=== PATIENT | male | born 1990 | race Caucasian/White ===

== ENCOUNTER 2018-11-28 15:21 | Outpatient (CLI) | payer OTHER ==
[2018-11-28 16:29] VITALS: BP 110/70
--- NOTE | 2018-11-28 16:29 | SLEEP CARE CONSULTATION ---
Information from patient questionnaire entered by Ewa Lock. I have reviewed and concur with the information entered by Ewa Lock. This document represents the service I personally performed and the decisions made by me, Stephy Schreiber MD, [facility]. History of Present Illness Reason for Visit: New patient Chief Complaint: reports: Unrefreshed sleep, Snoring, Observed pauses in breathing, Fatigue, Frequent awakenings at night Duration of Symptoms: 4 YEARS Usual bedtime: 10:00PM Time it takes to fall asleep: 2-5 minutes Snores at night: Yes Observed to quit breathing while asleep: Yes Sleeps alone due to snoring: No Number of times waking at night: 5 Reasons for waking at night: reports: Snoring, Gasping for air, Other (uncomfortable) Toss, Turn, or Twitch while sleeping: Yes Recalls having dreams: No Usually gets out of bed at: 6:00am Feels refreshed in the morning: No Morning headache: Yes (lasting all day) Sleepy or fatigued during the day: Yes Ever fallen asleep while driving: Yes Takes day naps: No Dreams during day naps: Yes Prior sleep studies: No Additional HPI information: I had the pleasure of seeing Mr. Hayward today regarding the possibility of him having a sleep disorder. As you know, he is a 28 year old gentleman who complains of loud snore, observed apneas, frequent awakenings, unrefreshed sleep, and excessive daytime sleepiness for the past 4 years. He reports waking up from his own snoring, choking, and having to gasp for air. He usually has a morning headache that lasts all day. During the day he complains of feeling sleepy and fatigued. His score on [place] Sleepiness Scale is 13 out of 24. He has fallen asleep while driving and has gone out of the more. He reports having impaired concentration during the day. - Parasomnia Symptoms Ever been unable to move upon waking from sleep: No Walks in sleep: Yes Talks in sleep: No Ever acted out dreams in sleep: No Ever felt weak in the knees when startled or emotional: No Bothered by creepy, crawly, restless sensations in legs: No Problems with memory or concentration: Yes Subjective Initial [place] Sleepiness Scale score: 13 Past Medical History Past Medical History: reports: Anxiety, Depression, GERD Social History The patient's occupation is a [employer]. Patient is and lives in [place]. Have you smoked in the past 12 months: No Alcohol use: Yes Alcohol amount and frequency: 1 glass/month Caffeine use: Yes Caffeine amount and frequency: 3 drinks/week Family History Family history of sleep disordered breathing: Yes Family Hx Sleep Apnea: Father: Snoring Allergies and Home Medications Home medication list reviewed: Yes Allergy and home medication list: most medications have run out Review of Systems Weight gain over past 5 years: 50 Cardiovascular: denies: high blood pressure, palpitations, chest pain, irregular heart rate or pulse, leg or foot swelling, have to sleep sitting up, other Respiratory: reports: shortness of breath Gastrointestinal: reports: heartburn, nausea, abdominal pain Neurological: reports: headaches Psychiatric: reports: anxiety, depression Ear/Nose/Throat: reports: nasal congestion, wisdom teeth removed Endocrine: reports: sluggishness, too hot or cold, increased appetite Musculoskeletal: reports: joint pain, neck pain, back pain Physical Exam Vital signs obtained and entered by: Dr. Schreiber Blood Pressure: 110/70 Cuff size: long Heart Rate: 97 O2 Saturation: 77 Height: 5 ft 7 in Weight (kg): 113.398 kg Body Mass Index: 39.1 BMI Classification: Class 2 Neck circumference: 18.5 HEENT: No craniofacial malformation Nostrils: patent to airflow Turbinates: normal Septum: midline Mouth and throat: narrow oropharynx Soft palate: long Hard palate: normal Uvula: normal Uvula visualization: 25% Mallampati Class III Tongue: enlarged in size with teeth wallace on lateral edges Tonsils: small Chin and jaw: Micrognathia Neck: normal w/o lymphadenopathy or thyromegaly Heart: regular rate and rhythm Lungs: clear bilaterally Abdomen: soft Extremities: no edema or clubbing Neurologic: intact Impression and Plan IMPRESSION: 1. Obstructive Sleep Apnea-Hypopnea Syndrome, as suggested by history of loud and irregular snoring, observed cessation of breath while asleep, frequent awakenings during the night, unrefreshed sleep, cognitive impairment, and daytime hypersomnolence. Narrow oropharynx and obesity are common predisposing factors for obstructive sleep apnea-hypopnea syndrome. Pathophysiology of sleep-disordered breathing was discussed. I recommend proceeding to polysomnography to confirm the diagnosis and to assess severity. If he has significant sleep disordered breathing, a manual CPAP titration study will also be performed to find the optimal treatment pressure. I informed the patient of what the sleep studies involve and after some discussion, he agreed to proceed. Plan: 1. Schedule polysomnography + manual CPAP titration study and return in 1 to 2 weeks after the study to discuss result and initiate therapy. 2. Avoid long distance driving or when feeling sleepy. 3. Avoid alcohol, sedative and muscle relaxant around bedtime. 4. Attempt to lose weight. I spent 100% of this 15 minute visit face to face with the patient with greater than 50% of this was spent time counseling the patient and coordination of care.
== END 2018-11-28 15:22 | disposition home or self-care (01) ==
LOC: SC 15:21
PROVIDERS: ATTEND Internal Medicine Pulmonary Disease
DX: R06.83 Snoring (principal); R06.81 Apnea, not elsewhere classified; G47.8 Other sleep disorders; R41.89 Other symptoms and signs involving cognitive functions and awareness; G47.10 Hypersomnia, unspecified
CPT/HCPCS: 99203; 99212

== ENCOUNTER 2018-12-08 20:17 | Outpatient (CLI) | payer OTHER | END 2018-12-08 20:18 | disposition home or self-care (01) | LOC: SC 20:17 | PROVIDERS: ATTEND Internal Medicine Pulmonary Disease | DX: G47.33 Obstructive sleep apnea (adult) (pediatric) (principal) | CPT/HCPCS: 95810 ==

== ENCOUNTER 2018-12-20 13:03 | Outpatient (CLI) | payer OTHER ==
[2018-12-20 14:26] VITALS: BP 138/70
--- NOTE | 2018-12-20 14:26 | SLEEP CARE CONSULTATION ---
Information from patient questionnaire entered by Ewa Lock. I have reviewed and concur with the information entered by Ewa Lock. This document represents the service I personally performed and the decisions made by me, Hannah Aponte RN, MSN, TELEPHONE INFORMATION CLERK. History of Present Illness Accompanied by: Spouse Initial [place] Sleepiness Scale score: 13 Current [place] Sleepiness Scale score: 16 Additional HPI information: CADY ESPINO returns with spouse for follow up of the recently performed polysomnography and patient was informed of the polysomnography findings. I explained the pathophysiology behind obstructive sleep apnea. We then spent quite a bit of time discussing different treatment options. For mild obstructive sleep apnea, surgery and oral appliance are alternatives to nasal CPAP therapy but in moderate or severe cases, nasal CPAP is the most effective and reliable treatment. I reviewed the impact of weight changes on sleep apnea and strongly recommended losing weight. After some discussion, the patient opted to go with the nasal CPAP therapy but [facility] after move to [place] in 5 days. I recommended them contacting [facility] to set up appointment due to severity of apnea and moderate hypoxia. Until then he is advised to avoid sleeping on his back by using pillow positioning and or Tshirt with tennis balls sewn in the back as shown to reduce apnea risk. Patient counseled not drink alcohol less than 4 hours before bedtime as it can increase snoring and apnea. Patient was cautioned about risks of drowsy driving until sleepiness symptoms resolve. Patient denies drowsy driving. However, since they are driving back to [place], they were both advised to keep each other alert while driving and rest regularly during drive to reduce sleepiness with long distance driving. [facility] patient education on snoring and sleep apnea given and reviewed. Sleep Study - Polysomnography Polysomnography findings: The quality of the study is good. The patient had slightly reduced sleep efficiency due to frequent awakenings after the sleep onset. The sleep architecture was abnormal for sleep fragmentation and lack of slow wave sleep (N3). Respiratory monitoring showed very severe obstructive sleep apnea-hypopnea (AHI = 78.1) associated with frequent arousals, oxyhemoglobin desaturation and moderate hypoxia (eleonora oxygen saturation of 76%). The respiratory events occurred independently of sleep stage and body position (supine AHI = 104.1; nonsupine = 57.16). Snore was loud in intensity. There was no significant periodic leg movement of sleep. Cardiac rhythm was normal sinus rhythm without significant arrhythmia. No abnormal behavior (parasomnia) observed during the night. Allergies and Home Medications Known drug allergies: No Home medication list reviewed: Yes (no medications) Review of Systems Review of systems same as previous: Yes Physical Exam Blood Pressure: 138/70 Cuff size: long Heart Rate: 89 O2 Saturation: 98 Height: 5 ft 7 in Weight (kg): 115.575 kg Body Mass Index: 39.9 BMI Classification: Class 2 Impression and Plan 1. Obstructive Sleep Apnea-Hypopnea Syndrome, very severe, with lowest oxygen saturation of 76%. Obviously this is the cause of the patients symptoms of unrefreshed sleep, and excessive daytime sleepiness. As mentioned above, the patient will [facility]. He is advised to contact now to set up appointment [facility] due to apnea severity and moderate hypoxia. He was instructed to avoid supine sleep to reduce apnea risk until he can be treated with CPAP with pillow positioning and or a T shirt with tennis balls sewn in the back . * [facility] * Attempt to lose weight. * Avoid alcohol consumption near bedtime. * Avoid supine sleep until using CPAP. * The patient is again cautioned about driving until sleepiness completely resolves. * Contact this office if any further questions or concerns. * Copy of sleep study given. I spent 100% of this 30 minute visit face to face with the patient with greater than 50% of this was spent time counseling the patient and coordination of care.
== END 2018-12-20 13:04 | disposition home or self-care (01) ==
LOC: SC 13:03
PROVIDERS: ATTEND Nurse Practitioner Family
DX: G47.33 Obstructive sleep apnea (adult) (pediatric) (principal)
CPT/HCPCS: 99212; 99214